=== PATIENT | female | born 1945 | race Caucasian/White ===

== ENCOUNTER 2016-06-28 10:49 | Emergency (ER) | payer MEDICARE, OTHER ==
[~2016-06-28] VITALS: Ht 162.6 cm; Wt 77.3 kg
[~2016-06-28 10:49] MED LIST: ASPIRIN E.C. 8181 MG PO; CLEOCIN HCL300 MG PO; CYMBALTA 60MG60 MG PO; GLUCOPHAGE500 MG/TAB PO; IMDUR 30MG30 MG/TAB PO; KLONOPIN2 MG PO; KLOR-CON 1010 MEQ PO; LEVEMIR SQ; LIPITOR20 MG PO; LOPRESSOR 225 MG/TAB PO; NITROSTAT0.4 MG/TAB SL; NORCO 325 MG-51 TAB PO; PROTONIX 40MG T40 MG PO; REQUIP 0.5MG0.5 MG PO; SINGULAIR 110 MG/TAB PO; SYNTHROID0.125 MG/T PO; TOPROL XL 25MG25 MG PO; TRULICITY1.5 MG/0.5 SQ; ZANTAC 150MG T150 MG PO
[2016-06-28 10:55] VITALS: TEMP 97.3
[2016-06-28 12:13] LABS: BASO % 0.6 % (0.0-2.0); EOS # 0.1 (0.0-0.7); EOS % 2.2 % (0-4.0); GRAN # 2.8 (1.4-6.5); GRAN % 56.7 % (42.2-75.2); LYMPH # 1.5 (1.2-3.4); LYMPH % 29.7 % (20.0-51.0); MEAN CELL VOLUME 89 fl (80.0-100.0); MEAN CORPUSCULAR HGB CONC 34 g/dl (33.0-37.0); MEAN PLATELET VOLUME 10.8 fl (7.4-10.4); MONO # 0.5 (0.1-0.6); MONO % 10.4 % (1.7-9.3); PLATELET COUNT 164 K/mm3 (130-400); RED BLOOD COUNT 3.88 M/mm3 (4.10-5.30); REDCELL DISTRIBUTION WIDTH-CV 13.3 % (11.5-14.5)
[2016-06-28 12:22] LABS: INFLUENZA B NEGATIVE
[2016-06-28 12:25] LABS: ADJUSTED CALCIUM 9.9 mg/dL (8.4-10.2); ALANINE AMINOTRANSFERASE 32 U/L (9-52); ALBUMIN 4.1 gm/dL (3.5-5.0); ALKALINE PHOSPHATASE 63 U/L (50-136); ANION GAP 10 mmol/L (7-16); BILIRUBIN,TOTAL 0.8 mg/dL (0.0-1.0); BLOOD UREA NITROGEN 23 mg/dL (7-17); CARBON DIOXIDE 22 mmol/L (22-30); CHLORIDE 105 mmol/L (98-107); CREATININE, serum 1.08 mg/dL (0.52-1.25); GLUCOSE 135 mg/dL (74-106); SODIUM 138 mmol/L (137-145); TOTAL PROTEIN 6.8 gm/dL (6.4-8.2)
[2016-06-28 12:28] LABS: HEMATOCRIT 34.6 % (37.0-47.0); HEMOGLOBIN 11.8 g/dl (12.5-16.0); MEAN CORPUSCULAR HEMOGLOBIN 30 pg (27.0-31.0)
[2016-06-28 12:36] LABS: B-TYPE NATRIURETIC PEPTIDE 318 pg/mL (0-125)
[2016-06-28 12:43] LABS: TROPONIN-I < 0.012 ng/mL (0.000-0.034)
[2016-06-28] MEDS ORDERED: ZITHROMAX Z PA250 MG PO (13:17)
[2016-06-28] MEDS ORDERED: PREDNISONE20 MG PO (13:17)
[2016-06-28] MEDS ORDERED: VENTOLIN0.09 MG IH (13:17)
[2016-06-28] MEDS ORDERED: TESSALON P100 MG/CAP PO (13:17)
[2016-06-28 13:41] VITALS: BP 115/69; PULSE 80
== END 2016-06-28 13:42 | disposition home or self-care (01) ==
LOC: COL.ER 10:49
PROVIDERS: Nurse Practitioner
DX: J20.9 Acute bronchitis, unspecified (principal); E11.9 Type 2 diabetes mellitus without complications; Z79.4 Long term (current) use of insulin; I10 Essential (primary) hypertension; I25.10 Atherosclerotic heart disease of native coronary artery without angina pectoris; Z95.1 Presence of aortocoronary bypass graft; Z95.5 Presence of coronary angioplasty implant and graft

== ENCOUNTER 2016-07-18 12:06 | Day surgery (SDC) | payer OTHER ==
[~2016-07-18] VITALS: Ht 162.6 cm; Wt 80.2 kg
[2016-07-18] VITALS (397 sets, daily range): BP systolic 102–143; BP diastolic 46–100; PULSE 70–82; TEMP 97–98; O2SAT 88–100
[~2016-07-18 12:06] MED LIST changes: +PREDNISONE20 MG PO; +TESSALON P100 MG/CAP PO; +VENTOLIN0.09 MG IH; +ZITHROMAX Z PA250 MG PO
[2016-07-18 12:44] LABS: HEMATOCRIT 37.4 % (37.0-47.0); HEMOGLOBIN 12.6 g/dl (12.5-16.0); MEAN CELL VOLUME 90 fl (80.0-100.0); MEAN CORPUSCULAR HEMOGLOBIN 30 pg (27.0-31.0); MEAN CORPUSCULAR HGB CONC 34 g/dl (33.0-37.0); MEAN PLATELET VOLUME 10.3 fl (7.4-10.4); PLATELET COUNT 166 K/mm3 (130-400); RED BLOOD COUNT 4.18 M/mm3 (4.10-5.30); REDCELL DISTRIBUTION WIDTH-CV 13.4 % (11.5-14.5); WHITE BLOOD COUNT 6.7 K/mm3 (4.8-10.8)
[2016-07-18 12:52] LABS: PROTHROMBIN TIME 10.9 SECONDS (9.7-12.8)
[2016-07-18] MEDS ORDERED: IMDUR 60MG60 MG/TAB PO (13:01)
[2016-07-18 13:06] LABS: CALCIUM 9.7 mg/dL (8.4-10.2); CREATININE, serum 1.01 mg/dL (0.52-1.25); POTASSIUM 4.5 mmol/L (3.4-5.0)
[2016-07-19] VITALS (440 sets, daily range): BP systolic 100–128; BP diastolic 47–72; PULSE 83–84; TEMP 97–98; O2SAT 91–100
[2016-07-19 05:56] LABS: BASO % 0.4 % (0.0-2.0); EOS # 0.1 (0.0-0.7); EOS % 2.4 % (0-4.0); GRAN # 2.7 (1.4-6.5); GRAN % 49.9 % (42.2-75.2); LYMPH # 2.2 (1.2-3.4); LYMPH % 39.6 % (20.0-51.0); MEAN CELL VOLUME 90 fl (80.0-100.0); MEAN CORPUSCULAR HGB CONC 34 g/dl (33.0-37.0); MEAN PLATELET VOLUME 10.4 fl (7.4-10.4); MONO # 0.4 (0.1-0.6); MONO % 7.3 % (1.7-9.3); PLATELET COUNT 140 K/mm3 (130-400); REDCELL DISTRIBUTION WIDTH-CV 13.2 % (11.5-14.5); WHITE BLOOD COUNT 5.5 K/mm3 (4.8-10.8)
[2016-07-19 06:01] LABS: HEMATOCRIT 33.4 % (37.0-47.0); HEMOGLOBIN 11.4 g/dl (12.5-16.0); MEAN CORPUSCULAR HEMOGLOBIN 31 pg (27.0-31.0)
[2016-07-19 06:42] LABS: CALCIUM 9.2 mg/dL (8.4-10.2); CREATININE, serum 1.01 mg/dL (0.52-1.25); POTASSIUM 4.2 mmol/L (3.4-5.0)
== END 2016-07-19 12:15 | disposition home or self-care (01) ==
LOC: EUO 12:06 → COL.RAD 12:30 → ICU 15:34 → EUO 07-19 12:15
PROVIDERS: Internal Medicine Interventional Cardiology
DX: I25.10 Atherosclerotic heart disease of native coronary artery without angina pectoris (principal); R07.9 Chest pain, unspecified; E11.9 Type 2 diabetes mellitus without complications; Z79.84 Long term (current) use of oral hypoglycemic drugs; Z79.4 Long term (current) use of insulin; E03.9 Hypothyroidism, unspecified; I10 Essential (primary) hypertension; E78.00 Pure hypercholesterolemia, unspecified
CPT/HCPCS: OP; C1725; C1760; C1769; C1874; C1887; C9600; C9601; J0583; J1815; J2250; J3010; Q9967

== ENCOUNTER 2016-08-09 08:58 | Emergency (ER) | payer MEDICARE, OTHER ==
[~2016-08-09] VITALS: Ht 162.6 cm; Wt 81.4 kg
[~2016-08-09 08:58] MED LIST changes: +IMDUR 60MG60 MG/TAB PO
[2016-08-09 09:12] VITALS: TEMP 98.2
[2016-08-09 09:18] LABS: BASO % 0.4 % (0.0-2.0); EOS # 0.2 (0.0-0.7); EOS % 2.3 % (0-4.0); GRAN # 4.6 (1.4-6.5); GRAN % 63.2 % (42.2-75.2); HEMOGLOBIN 12.3 g/dl (12.5-16.0); LYMPH % 26.9 % (20.0-51.0); MEAN CELL VOLUME 92 fl (80.0-100.0); MEAN CORPUSCULAR HEMOGLOBIN 31 pg (27.0-31.0); MEAN CORPUSCULAR HGB CONC 34 g/dl (33.0-37.0); MEAN PLATELET VOLUME 10.5 fl (7.4-10.4); MONO # 0.5 (0.1-0.6); MONO % 6.9 % (1.7-9.3); PLATELET COUNT 164 K/mm3 (130-400); RED BLOOD COUNT 3.96 M/mm3 (4.10-5.30); REDCELL DISTRIBUTION WIDTH-CV 13.8 % (11.5-14.5); WHITE BLOOD COUNT 7.4 K/mm3 (4.8-10.8)
[2016-08-09] MEDS ORDERED: PLAVIX 75MG TAB75 MG PO (09:23)
[2016-08-09 09:26] LABS: HEMATOCRIT 36.3 % (37.0-47.0)
[2016-08-09 09:28] LABS: INR 0.9 (0.8-3.0); PROTHROMBIN TIME 10.2 SECONDS (9.7-12.8)
[2016-08-09 09:31] LABS: PARTIAL THROMBOPLASTIN TIME 30.3 SECONDS (26.0-37.0)
[2016-08-09 09:33] LABS: ADJUSTED CALCIUM 9.3 mg/dL (8.4-10.2); ALANINE AMINOTRANSFERASE 33 U/L (9-52); ALBUMIN 4.3 gm/dL (3.5-5.0); ALKALINE PHOSPHATASE 66 U/L (50-136); ANION GAP 13 mmol/L (7-16); BILIRUBIN,TOTAL 0.7 mg/dL (0.0-1.0); BLOOD UREA NITROGEN 26 mg/dL (7-17); CALCIUM 9.5 mg/dL (8.4-10.2); CARBON DIOXIDE 21 mmol/L (22-30); CHLORIDE 103 mmol/L (98-107); CREATININE, serum 1.07 mg/dL (0.52-1.25); GLUCOSE 169 mg/dL (74-106); POTASSIUM 4.5 mmol/L (3.4-5.0); SODIUM 137 mmol/L (137-145); TOTAL PROTEIN 6.9 gm/dL (6.4-8.2)
[2016-08-09 09:44] LABS: TROPONIN-I < 0.012 ng/mL (0.000-0.034)
[2016-08-09 12:30] VITALS: BP 120/66; PULSE 79
== END 2016-08-09 12:40 | disposition short-term general hospital (02) ==
LOC: COL.ER 08:58
PROVIDERS: Family Medicine
DX: R07.9 Chest pain, unspecified (principal); I25.10 Atherosclerotic heart disease of native coronary artery without angina pectoris; I10 Essential (primary) hypertension; E11.9 Type 2 diabetes mellitus without complications; Z95.1 Presence of aortocoronary bypass graft; R06.02 Shortness of breath; Z79.02 Long term (current) use of antithrombotics/antiplatelets; Z79.4 Long term (current) use of insulin
CPT/HCPCS: J2060

== ENCOUNTER 2016-08-22 09:58 | Inpatient (IN) | payer MEDICARE, OTHER ==
[~2016-08-22] VITALS: Ht 162.6 cm; Wt 82.6 kg
[2016-08-22] VITALS (185 sets, daily range): BP systolic 127–144; BP diastolic 50–84; PULSE 78–81; TEMP 97.9–98.7; O2SAT 84–100
[~2016-08-22 09:58] MED LIST changes: +PLAVIX 75MG TAB75 MG PO
[2016-08-22 10:34] LABS: VENOUS BLOOD GAS BE -4.3 (-4-4); VENOUS BLOOD GAS SAO2 66.1 % (60-80)
[2016-08-22 10:35] LABS: VENOUS BLOOD GAS SITE VENIPUNCTURE
[2016-08-22 10:44] LABS: BASO % 0.4 % (0.0-2.0); EOS # 0.1 (0.0-0.7); EOS % 1.4 % (0-4.0); GRAN # 5.3 (1.4-6.5); GRAN % 72.5 % (42.2-75.2); HEMOGLOBIN 12.1 g/dl (12.5-16.0); LYMPH # 1.2 (1.2-3.4); LYMPH % 16.3 % (20.0-51.0); MEAN CELL VOLUME 92 fl (80.0-100.0); MEAN CORPUSCULAR HEMOGLOBIN 31 pg (27.0-31.0); MEAN CORPUSCULAR HGB CONC 34 g/dl (33.0-37.0); MEAN PLATELET VOLUME 10.5 fl (7.4-10.4); MONO # 0.7 (0.1-0.6); MONO % 8.9 % (1.7-9.3); PLATELET COUNT 206 K/mm3 (130-400); RED BLOOD COUNT 3.93 M/mm3 (4.10-5.30); REDCELL DISTRIBUTION WIDTH-CV 13.8 % (11.5-14.5); WHITE BLOOD COUNT 7.3 K/mm3 (4.8-10.8)
[2016-08-22 10:58] LABS: ADJUSTED CALCIUM 9.6 mg/dL (8.4-10.2); ALBUMIN 4.3 gm/dL (3.5-5.0); CALCIUM 9.8 mg/dL (8.4-10.2); CREATININE, serum 2.4 mg/dL (0.52-1.25); POTASSIUM 4.1 mmol/L (3.4-5.0); TOTAL PROTEIN 7.1 gm/dL (6.4-8.2)
[2016-08-22 12:50] LABS: PH 5 (5-8); SQUAMOUS EPITHELIAL 0-2 /hpf; URINE APPEARANCE Clear; URINE BACTERIA None Seen /hpf; URINE BILIRUBIN Negative (NEGATIVE); URINE BLOOD Negative (NEGATIVE); URINE COLOR Yellow; URINE GLUCOSE Negative (NEGATIVE); URINE KETONE Negative (NEGATIVE); URINE RBC 0-2 /hpf; URINE UROBILINOGEN Negative (NEGATIVE); URINE WBC 0-2 /hpf
[2016-08-22] MEDS ORDERED: RANEXA1000 MG PO (13:22)
[2016-08-22] MEDS ORDERED: BRILINTA90 MG PO (13:23)
[2016-08-22] MEDS ORDERED: LASIX 40MG TABL40 MG PO (15:00)
[2016-08-23 07:17] LABS: CALCIUM 9.2 mg/dL (8.4-10.2); CREATININE, serum 1.2 mg/dL (0.52-1.25); POTASSIUM 3.9 mmol/L (3.4-5.0)
[2016-08-23 07:22] VITALS: BP 124/74; PULSE 85; TEMP 98.8
[2016-08-23] MEDS ORDERED: MUCINEX DM 30 M1 TE1 PO (11:02)
[2016-08-23 11:45] VITALS: BP 129/68; PULSE 83; TEMP 98.4
[2016-08-23] MEDS ORDERED: LEVEMIR FLEX100 U/ML SQ (12:12)
== END 2016-08-23 14:24 | disposition home or self-care (01) | DRG 641 ==
LOC: COL.ER 09:58 → MEDICAL 12:56 → ICU 12:56 → MEDICAL 18:50
PROVIDERS: Family Medicine; Internal Medicine
DX: E86.1 Hypovolemia (principal); N17.9 Acute kidney failure, unspecified; E11.42 Type 2 diabetes mellitus with diabetic polyneuropathy; I10 Essential (primary) hypertension; J00 Acute nasopharyngitis [common cold]; E11.649 Type 2 diabetes mellitus with hypoglycemia without coma; I25.10 Atherosclerotic heart disease of native coronary artery without angina pectoris; Z95.1 Presence of aortocoronary bypass graft; Z95.5 Presence of coronary angioplasty implant and graft; Z79.4 Long term (current) use of insulin; J20.9 Acute bronchitis, unspecified
CPT/HCPCS: 99223-AI; 99239; J1644; J1815; J7030

== ENCOUNTER → 2016-10-10 | Outpatient (CLI) | payer MEDICARE, OTHER ==
[~2016-10-10] MED LIST changes: +BRILINTA90 MG PO; +CARDIZEM CD 12120 MG PO; +LASIX 40MG TABL40 MG PO; +LEVEMIR FLEX100 U/ML SQ; +MUCINEX DM 30 M1 TE1 PO; +RANEXA1000 MG PO
== END ==
LOC: MC.RAD 10:20
DX: Z12.31 Encounter for screening mammogram for malignant neoplasm of breast (principal)

== ENCOUNTER 2016-10-11 17:52 | Outpatient (RCR) | payer MEDICARE, OTHER ==
[~2016-10-11 17:52] MED LIST changes: -CARDIZEM CD 12120 MG PO
== END 2016-11-26 | disposition home or self-care (01) ==
LOC: COL.CR
DX: Z48.812 Encounter for surgical aftercare following surgery on the circulatory system (principal); Z95.5 Presence of coronary angioplasty implant and graft

== ENCOUNTER 2017-02-01 17:25 | Observation (INO) | payer MEDICARE, OTHER ==
[~2017-02-01] VITALS: Ht 162.6 cm; Wt 79.2 kg
[2017-02-01] MEDS ORDERED: CARDIZEM CD 12120 MG PO (18:06)
[2017-02-01 18:23] LABS: BASO % 0.4 % (0.0-2.0); EOS # 0.1 (0.0-0.7); EOS % 1.5 % (0-4.0); GRAN # 3.6 (1.4-6.5); GRAN % 65.9 % (42.2-75.2); HEMATOCRIT 30.9 % (37.0-47.0); HEMOGLOBIN 10.3 g/dl (12.5-16.0); LYMPH # 1.3 (1.2-3.4); LYMPH % 23.1 % (20.0-51.0); MEAN CELL VOLUME 93 fl (80.0-100.0); MEAN CORPUSCULAR HEMOGLOBIN 31 pg (27.0-31.0); MEAN CORPUSCULAR HGB CONC 33 g/dl (33.0-37.0); MEAN PLATELET VOLUME 10.8 fl (7.4-10.4); MONO # 0.4 (0.1-0.6); PLATELET COUNT 162 K/mm3 (130-400); RED BLOOD COUNT 3.31 M/mm3 (4.10-5.30); REDCELL DISTRIBUTION WIDTH-CV 13.3 % (11.5-14.5); WHITE BLOOD COUNT 5.5 K/mm3 (4.8-10.8)
[2017-02-01 18:25] LABS: PROTHROMBIN TIME 10.6 SECONDS (9.7-12.8)
[2017-02-01 18:27] LABS: PARTIAL THROMBOPLASTIN TIME 26.8 SECONDS (26.0-37.0)
[2017-02-01 18:30] LABS: ADJUSTED CALCIUM 9.3 mg/dL (8.4-10.2); ALANINE AMINOTRANSFERASE 32 U/L (9-52); ALBUMIN 3.8 gm/dL (3.5-5.0); ALKALINE PHOSPHATASE 49 U/L (50-136); ANION GAP 10 mmol/L (7-16); BILIRUBIN,TOTAL 0.6 mg/dL (0.0-1.0); BLOOD UREA NITROGEN 20 mg/dL (7-17); CALCIUM 9.1 mg/dL (8.4-10.2); CARBON DIOXIDE 22 mmol/L (22-30); CHLORIDE 103 mmol/L (98-107); CREATININE, serum 1.01 mg/dL (0.52-1.25); GLUCOSE 146 mg/dL (74-106); POTASSIUM 4.8 mmol/L (3.4-5.0); SODIUM 135 mmol/L (137-145); TOTAL PROTEIN 6.1 gm/dL (6.4-8.2)
[2017-02-01 18:42] LABS: TROPONIN-I < 0.012 ng/mL (0.000-0.034)
[2017-02-01 19:34] VITALS: BP 113/52; PULSE 68
[2017-02-01 23:32] VITALS: BP 121/50; PULSE 75; TEMP 97.8
[2017-02-01 23:38] VITALS: BP 121/50; PULSE 75; TEMP 97.8
[2017-02-02] VITALS (10 sets, daily range): BP systolic 94–144; BP diastolic 38–72; PULSE 77–92; TEMP 97.8–99
[2017-02-03 00:06] VITALS: BP 130/65; PULSE 78; TEMP 98.3
[2017-02-03 03:55] VITALS: BP 123/55; PULSE 80; TEMP 98.2
[2017-02-03 08:44] VITALS: BP 150/51; PULSE 84; TEMP 97.8
[2017-02-03 11:35] VITALS: BP 155/58; PULSE 80; TEMP 99.1
[2017-02-03 16:26] VITALS: BP 147/64; PULSE 80; TEMP 98.8
[2017-02-03] MEDS ORDERED: NORCO 325 MG-51 TAB PO (16:51)
== END 2017-02-03 18:49 | disposition home or self-care (01) ==
LOC: COL.ER 17:25 → MEDICAL 20:12
PROVIDERS: Emergency Medicine
DX: S32.592A Other specified fracture of left pubis, initial encounter for closed fracture (principal); I95.1 Orthostatic hypotension; I25.10 Atherosclerotic heart disease of native coronary artery without angina pectoris; I10 Essential (primary) hypertension; E11.9 Type 2 diabetes mellitus without complications; I82.409 Acute embolism and thrombosis of unspecified deep veins of unspecified lower extremity; E03.9 Hypothyroidism, unspecified; E78.00 Pure hypercholesterolemia, unspecified; F41.9 Anxiety disorder, unspecified; Z79.4 Long term (current) use of insulin; Z95.1 Presence of aortocoronary bypass graft; Z95.5 Presence of coronary angioplasty implant and graft; Z90.710 Acquired absence of both cervix and uterus
CPT/HCPCS: 99239; G0378; G8978-GP; G8979-GP; G8987-GO; G8988-GO; J1644; J1815; J2270; J7030

== ENCOUNTER 2017-03-20 20:03 | Inpatient (IN) | payer MEDICARE, OTHER ==
[~2017-03-20] VITALS: Ht 152.4 cm; Wt 79.1 kg
[~2017-03-20 20:03] MED LIST changes: +CARDIZEM CD 12120 MG PO
[2017-03-20 21:16] LABS: BASO % 0.5 % (0.0-2.0); EOS # 0.1 (0.0-0.7); EOS % 1.4 % (0-4.0); GRAN # 3.8 (1.4-6.5); GRAN % 65.7 % (42.2-75.2); LYMPH # 1.4 (1.2-3.4); LYMPH % 23.5 % (20.0-51.0); MEAN CELL VOLUME 92 fl (80.0-100.0); MEAN CORPUSCULAR HGB CONC 34 g/dl (33.0-37.0); MEAN PLATELET VOLUME 10.5 fl (7.4-10.4); MONO # 0.5 (0.1-0.6); MONO % 8.6 % (1.7-9.3); PLATELET COUNT 168 K/mm3 (130-400); RED BLOOD COUNT 3.69 M/mm3 (4.10-5.30); WHITE BLOOD COUNT 5.8 K/mm3 (4.8-10.8)
[2017-03-20 21:18] LABS: HEMATOCRIT 34.1 % (37.0-47.0); HEMOGLOBIN 11.5 g/dl (12.5-16.0); MEAN CORPUSCULAR HEMOGLOBIN 31 pg (27.0-31.0)
[2017-03-20 21:28] LABS: ADJUSTED CALCIUM 9.3 mg/dL (8.4-10.2); ALANINE AMINOTRANSFERASE 19 U/L (9-52); ALBUMIN 4.5 gm/dL (3.5-5.0); ALKALINE PHOSPHATASE 108 U/L (50-136); ANION GAP 16 mmol/L (7-16); BILIRUBIN,TOTAL 0.7 mg/dL (0.0-1.0); BLOOD UREA NITROGEN 30 mg/dL (7-17); CALCIUM 9.7 mg/dL (8.4-10.2); CARBON DIOXIDE 21 mmol/L (22-30); CHLORIDE 100 mmol/L (98-107); CREATININE, serum 1.41 mg/dL (0.52-1.25); GLUCOSE 110 mg/dL (74-106); POTASSIUM 4.5 mmol/L (3.4-5.0); SODIUM 137 mmol/L (137-145); TOTAL PROTEIN 7.2 gm/dL (6.4-8.2)
[2017-03-20 21:29] LABS: C-REACTIVE PROTEIN < 0.5 mg/dL (0.0-0.9)
[2017-03-20 21:38] LABS: TROPONIN-I < 0.012 ng/mL (0.000-0.034)
[2017-03-20 21:48] VITALS: BP 133/71; PULSE 81
[2017-03-20] MEDS ORDERED: K-DUR20 MEQ PO (22:10)
[2017-03-20] MEDS ORDERED: LASIX 40MG TABL40 MG PO (22:11)
[2017-03-20] MEDS ORDERED: GLUCOPHAGE500 MG/TAB PO (22:11)
[2017-03-20] MEDS ORDERED: SINGULAIR 110 MG/TAB PO (22:12)
[2017-03-20] MEDS ORDERED: ZOFRAN 4MG T4 MG/TAB PO (22:13)
[2017-03-20 22:23] LABS: COLLECTION METHOD CLEAN CATCH
[2017-03-20 22:33] LABS: MUCOUS Present /lpf; PH 5 (5-8); URINE APPEARANCE Clear; URINE BACTERIA None Seen /hpf; URINE BILIRUBIN Negative (NEGATIVE); URINE BLOOD Negative (NEGATIVE); URINE COLOR Yellow; URINE GLUCOSE Negative (NEGATIVE); URINE KETONE Negative (NEGATIVE); URINE LEUKOCYTE ESTERASE Negative (NEGATIVE); URINE PROTEIN(semi-quant) Negative (NEGATIVE); URINE RBC 0-2 /hpf; URINE UROBILINOGEN Negative (NEGATIVE); URINE WBC 0-2 /hpf
[2017-03-21] VITALS (14 sets, daily range): BP systolic 92–154; BP diastolic 26–71; PULSE 69–99; TEMP 97.4–98.4
[2017-03-21] MEDS ORDERED: REQUIP 0.5MG0.5 MG PO (00:13)
[2017-03-21 07:10] LABS: BASO % 0.3 % (0.0-2.0); EOS # 0.1 (0.0-0.7); EOS % 1.2 % (0-4.0); GRAN # 4.1 (1.4-6.5); LYMPH # 1.2 (1.2-3.4); MEAN CELL VOLUME 93 fl (80.0-100.0); MEAN CORPUSCULAR HGB CONC 34 g/dl (33.0-37.0); MEAN PLATELET VOLUME 10.7 fl (7.4-10.4); MONO # 0.4 (0.1-0.6); MONO % 7.2 % (1.7-9.3); PLATELET COUNT 149 K/mm3 (130-400); RED BLOOD COUNT 3.28 M/mm3 (4.10-5.30); WHITE BLOOD COUNT 5.8 K/mm3 (4.8-10.8)
[2017-03-21 07:12] LABS: HEMATOCRIT 30.4 % (37.0-47.0); HEMOGLOBIN 10.2 g/dl (12.5-16.0); MEAN CORPUSCULAR HEMOGLOBIN 31 pg (27.0-31.0)
[2017-03-21 07:25] LABS: ADJUSTED CALCIUM 9.3 mg/dL (8.4-10.2); ALBUMIN 3.8 gm/dL (3.5-5.0); BILIRUBIN,TOTAL 0.6 mg/dL (0.0-1.0); CALCIUM 9.1 mg/dL (8.4-10.2); CHOLESTEROL RISK RATIO 1.8; CREATININE, serum 1.23 mg/dL (0.52-1.25); POTASSIUM 4.3 mmol/L (3.4-5.0); TOTAL PROTEIN 6.2 gm/dL (6.4-8.2)
[2017-03-22 04:31] VITALS: BP 134/52; PULSE 77; TEMP 97.6
[2017-03-22 06:59] LABS: CALCIUM 9.2 mg/dL (8.4-10.2); CREATININE, serum 1.15 mg/dL (0.52-1.25)
[2017-03-22 08:48] VITALS: BP 146/56; PULSE 74; TEMP 97.4
[2017-03-22] MEDS ORDERED: KEPPRA 500MG500 MG PO (11:02)
[2017-03-22 12:00] VITALS: BP 121/64; PULSE 76; TEMP 97.9
== END 2017-03-22 16:39 | disposition home or self-care (01) | DRG 101 ==
LOC: COL.ER 20:03 → MEDICAL 23:20
PROVIDERS: Emergency Medicine; Nurse Practitioner Family; Physician Assistant
DX: R56.9 Unspecified convulsions (principal); N17.9 Acute kidney failure, unspecified; E11.9 Type 2 diabetes mellitus without complications; E03.9 Hypothyroidism, unspecified; K21.9 Gastro-esophageal reflux disease without esophagitis; E78.5 Hyperlipidemia, unspecified; I11.0 Hypertensive heart disease with heart failure; I50.9 Heart failure, unspecified; Z66 Do not resuscitate; F32.9 Major depressive disorder, single episode, unspecified; F41.9 Anxiety disorder, unspecified; R47.1 Dysarthria and anarthria; R53.1 Weakness; Z95.1 Presence of aortocoronary bypass graft; Z96.643 Presence of artificial hip joint, bilateral; Z95.5 Presence of coronary angioplasty implant and graft; Z79.84 Long term (current) use of oral hypoglycemic drugs
CPT/HCPCS: 99223-AI; 99239; A9585; G8978-GP; G8979-GP; G8987-GO; G8988-GO; G8999-GN; G9186-GN; J1644; J1815; J7030

== ENCOUNTER → 2017-03-27 | Outpatient (CLI) | payer MEDICARE, OTHER ==
[~2017-03-27] MED LIST changes: +K-DUR20 MEQ PO; +KEPPRA 500MG500 MG PO; +ZOFRAN 4MG T4 MG/TAB PO
== END ==
LOC: COL.CARD 09:12
DX: R41.82 Altered mental status, unspecified (principal); R25.1 Tremor, unspecified

== ENCOUNTER 2017-06-18 13:35 | Emergency (ER) | payer MEDICARE, OTHER ==
[~2017-06-18] VITALS: Ht 162.6 cm; Wt 81.8 kg
[2017-06-18 13:41] VITALS: TEMP 98
[2017-06-18 13:59] LABS: BASO % 0.4 % (0.0-2.0); EOS # 0.1 (0.0-0.7); EOS % 1.9 % (0-4.0); GRAN % 65.4 % (42.2-75.2); HEMOGLOBIN 11.7 g/dl (12.5-16.0); LYMPH # 1.2 (1.2-3.4); LYMPH % 24.8 % (20.0-51.0); MEAN CELL VOLUME 96 fl (80.0-100.0); MEAN CORPUSCULAR HEMOGLOBIN 31 pg (27.0-31.0); MEAN CORPUSCULAR HGB CONC 33 g/dl (33.0-37.0); MEAN PLATELET VOLUME 10.3 fl (7.4-10.4); MONO # 0.3 (0.1-0.6); MONO % 7.1 % (1.7-9.3); PLATELET COUNT 163 K/mm3 (130-400); RED BLOOD COUNT 3.74 M/mm3 (4.10-5.30); REDCELL DISTRIBUTION WIDTH-CV 14.1 % (11.5-14.5)
[2017-06-18] MEDS ORDERED: ASPIRIN 81M81 MG/TA2 PO (14:00)
[2017-06-18] MEDS ORDERED: CYMBALTA 60MG60 MG PO (14:01)
[2017-06-18] MEDS ORDERED: IRON TABLETS325 MG PO (14:01)
[2017-06-18] MEDS ORDERED: LIPITOR20 MG PO (14:01)
[2017-06-18] MEDS ORDERED: LASIX 40MG TABL40 MG PO (14:02)
[2017-06-18] MEDS ORDERED: LEVEMIR100 U/ML SQ (14:03)
[2017-06-18] MEDS ORDERED: NORCO 325 MG-51 TAB PO (14:03)
[2017-06-18] MEDS ORDERED: KEPPRA750 MG PO (14:04)
[2017-06-18] MEDS ORDERED: ISOSORBIDE MON120 MG PO (14:04)
[2017-06-18] MEDS ORDERED: MAG-OX 400400 MG/TAB PO (14:05)
[2017-06-18] MEDS ORDERED: SYNTHROID0.125 MG/T PO (14:05)
[2017-06-18] MEDS ORDERED: GLUCOPHAGE500 MG/TAB PO (14:05)
[2017-06-18 14:06] LABS: INR 0.9 (0.8-3.0); PROTHROMBIN TIME 10.7 SECONDS (9.7-12.8)
[2017-06-18] MEDS ORDERED: NITROSTAT0.4 MG/TAB SL (14:06)
[2017-06-18] MEDS ORDERED: SINGULAIR 110 MG/TAB PO (14:06)
[2017-06-18] MEDS ORDERED: PROTONIX 40MG T40 MG PO (14:07)
[2017-06-18] MEDS ORDERED: ZOFRAN 4MG T4 MG/TAB PO (14:07)
[2017-06-18] MEDS ORDERED: K-DUR20 MEQ PO (14:08)
[2017-06-18] MEDS ORDERED: REQUIP 0.5MG0.5 MG PO ×2 (14:08→14:09)
[2017-06-18] MEDS ORDERED: RANEXA1000 MG PO (14:08)
[2017-06-18 14:09] LABS: ALANINE AMINOTRANSFERASE 25 U/L (9-52); ALBUMIN 4.6 gm/dL (3.5-5.0); ALKALINE PHOSPHATASE 73 U/L (50-136); ANION GAP 11 mmol/L (7-16); AST,SGOT 14 U/L (15-37); BILIRUBIN,TOTAL 0.5 mg/dL (0.0-1.0); BLOOD UREA NITROGEN 23 mg/dL (7-17); CALCIUM 9.5 mg/dL (8.4-10.2); CARBON DIOXIDE 23 mmol/L (22-30); CHLORIDE 102 mmol/L (98-107); CREATININE, serum 1.23 mg/dL (0.52-1.25); GLUCOSE 388 mg/dL (74-106); POTASSIUM 4.9 mmol/L (3.4-5.0); SODIUM 136 mmol/L (137-145); TOTAL PROTEIN 6.9 gm/dL (6.4-8.2)
[2017-06-18] MEDS ORDERED: BRILINTA90 MG PO (14:09)
[2017-06-18] MEDS ORDERED: TRULICITY1.5 MG/0.5 SQ (14:10)
[2017-06-18 14:21] LABS: TROPONIN-I < 0.012 ng/mL (0.000-0.034)
[2017-06-18 16:59] VITALS: BP 117/69; PULSE 93
== END 2017-06-18 17:01 | disposition home or self-care (01) ==
LOC: COL.ER 13:35
PROVIDERS: Family Medicine
DX: R07.9 Chest pain, unspecified (principal); I10 Essential (primary) hypertension; E11.9 Type 2 diabetes mellitus without complications; E78.5 Hyperlipidemia, unspecified; I25.10 Atherosclerotic heart disease of native coronary artery without angina pectoris; Z95.5 Presence of coronary angioplasty implant and graft; Z98.890 Other specified postprocedural states; Z79.82 Long term (current) use of aspirin; Z79.4 Long term (current) use of insulin
CPT/HCPCS: J1885

== ENCOUNTER → 2017-07-20 | Outpatient (CLI) | payer MEDICARE, OTHER ==
[~2017-07-20] MED LIST changes: +ASPIRIN 81M81 MG/TA2 PO; +IRON TABLETS325 MG PO; +ISOSORBIDE MON120 MG PO; +KEPPRA750 MG PO; +LEVEMIR100 U/ML SQ; +MAG-OX 400400 MG/TAB PO
== END ==
LOC: COL.RAD 10:23
DX: N26.1 Atrophy of kidney (terminal) (principal); N18.3 Chronic kidney disease, stage 3 (moderate)

== ENCOUNTER 2017-10-22 12:08 | Emergency (ER) | payer MEDICARE, OTHER ==
[~2017-10-22] VITALS: Ht 165.1 cm; Wt 78.6 kg
[2017-10-22 12:11] VITALS: TEMP 97.5
[2017-10-22] MEDS ORDERED: BRILINTA90 MG PO (12:25)
[2017-10-22] MEDS ORDERED: HYGROTON 2525 MG/TAB PO (12:26)
[2017-10-22] MEDS ORDERED: PLETAL50 MG PO (12:26)
[2017-10-22] MEDS ORDERED: CYMBALTA 60MG60 MG PO (12:27)
[2017-10-22] MEDS ORDERED: KLONOPIN2 MG PO (12:27)
[2017-10-22] MEDS ORDERED: NEURONTIN300 MG/CAP PO (12:28)
[2017-10-22] MEDS ORDERED: KEPPRA 500MG500 MG PO (12:30)
[2017-10-22] MEDS ORDERED: MELATONIN5 M1 PO (12:32)
[2017-10-22] MEDS ORDERED: TOPROL XL 25MG25 MG PO (12:33)
[2017-10-22] MEDS ORDERED: ZANTAC 150MG T150 MG PO (12:34)
[2017-10-22] MEDS ORDERED: REQUIP4 MG PO (12:35)
[2017-10-22] MEDS ORDERED: ZANAFLEX 4MG TAB4 MG PO (12:37)
[2017-10-22] MEDS ORDERED: VITAMIN D 50,1.25 MG PO (12:38)
[2017-10-22] MEDS ORDERED: VITAMINC1000TA PO (12:38)
[2017-10-22 12:56] LABS: BASO % 0.3 % (0.0-2.0); EOS # 0.1 (0.0-0.7); EOS % 1.1 % (0-4.0); GRAN # 4.1 (1.4-6.5); GRAN % 64.4 % (42.2-75.2); HEMOGLOBIN 11.5 g/dl (12.5-16.0); LYMPH # 1.6 (1.2-3.4); LYMPH % 25.2 % (20.0-51.0); MEAN CELL VOLUME 93 fl (80.0-100.0); MEAN CORPUSCULAR HEMOGLOBIN 32 pg (27.0-31.0); MEAN CORPUSCULAR HGB CONC 34 g/dl (33.0-37.0); MEAN PLATELET VOLUME 9.7 fl (7.4-10.4); MONO # 0.5 (0.1-0.6); MONO % 8.2 % (1.7-9.3); PLATELET COUNT 227 K/mm3 (130-400); RED BLOOD COUNT 3.63 M/mm3 (4.10-5.30); REDCELL DISTRIBUTION WIDTH-CV 13.5 % (11.5-14.5)
[2017-10-22 12:57] LABS: HEMATOCRIT 33.7 % (37.0-47.0)
[2017-10-22 13:08] LABS: ALANINE AMINOTRANSFERASE 21 U/L (9-52); ALBUMIN 4.2 gm/dL (3.5-5.0); ALKALINE PHOSPHATASE 65 U/L (50-136); ANION GAP 15 mmol/L (7-16); AST,SGOT 19 U/L (15-37); BILIRUBIN,TOTAL 0.7 mg/dL (0.0-1.0); BLOOD UREA NITROGEN 49 mg/dL (7-17); C-REACTIVE PROTEIN 3.6 mg/dL (0.0-0.9); CALCIUM 9.6 mg/dL (8.4-10.2); CARBON DIOXIDE 21 mmol/L (22-30); CHLORIDE 101 mmol/L (98-107); CREATININE, serum 2.22 mg/dL (0.52-1.25); GLUCOSE 105 mg/dL (74-106); LIPASE 116 U/L (23-300); POTASSIUM 3.5 mmol/L (3.4-5.0); SODIUM 137 mmol/L (137-145); TOTAL PROTEIN 7.9 gm/dL (6.4-8.2)
[2017-10-22 13:18] LABS: TROPONIN-I < 0.012 ng/mL (0.000-0.034)
[2017-10-22 14:44] VITALS: BP 122/59; PULSE 71
== END 2017-10-22 15:30 | disposition short-term general hospital (02) ==
LOC: COL.ER 12:08
PROVIDERS: Emergency Medicine
DX: S06.6X9A Traumatic subarachnoid hemorrhage with loss of consciousness of unspecified duration, initial encounter (principal); N17.9 Acute kidney failure, unspecified; I10 Essential (primary) hypertension; I50.9 Heart failure, unspecified; Z95.1 Presence of aortocoronary bypass graft; Z91.81 History of falling; Z79.82 Long term (current) use of aspirin; Z79.4 Long term (current) use of insulin; W19.XXXA Unspecified fall, initial encounter; W22.8XXA Striking against or struck by other objects, initial encounter
CPT/HCPCS: J7030

== ENCOUNTER 2017-10-24 11:17 | Inpatient (IN) | payer MEDICARE, OTHER ==
[~2017-10-24] VITALS: Ht 162.6 cm; Wt 76.9 kg
[~2017-10-24 11:17] MED LIST changes: +HYGROTON 2525 MG/TAB PO; +MELATONIN5 M1 PO; +NEURONTIN300 MG/CAP PO; +PLETAL50 MG PO; +REQUIP4 MG PO; +VITAMIN D 50,1.25 MG PO; +VITAMINC1000TA PO; +ZANAFLEX 4MG TAB4 MG PO
[2017-10-24 11:56] LABS: HEMOGLOBIN 12.1 g/dl (12.5-16.0); MEAN CELL VOLUME 92 fl (80.0-100.0); MEAN CORPUSCULAR HEMOGLOBIN 32 pg (27.0-31.0); MEAN CORPUSCULAR HGB CONC 35 g/dl (33.0-37.0); MEAN PLATELET VOLUME 9.7 fl (7.4-10.4); PLATELET COUNT 316 K/mm3 (130-400); RED BLOOD COUNT 3.78 M/mm3 (4.10-5.30); REDCELL DISTRIBUTION WIDTH-CV 13.6 % (11.5-14.5)
[2017-10-24 12:03] LABS: HEMATOCRIT 34.9 % (37.0-47.0)
[2017-10-24 12:08] LABS: COLLECTION METHOD CLEAN CATCH
[2017-10-24 12:13] LABS: ALBUMIN 4.5 gm/dL (3.5-5.0); BILIRUBIN,TOTAL 0.8 mg/dL (0.0-1.0); CALCIUM 10.1 mg/dL (8.4-10.2); CREATININE, serum 1.31 mg/dL (0.52-1.25); MAGNESIUM 1.9 mg/dL (1.6-2.3); POTASSIUM 3.8 mmol/L (3.4-5.0); TOTAL PROTEIN 8.6 gm/dL (6.4-8.2)
[2017-10-24 12:21] LABS: MUCOUS Present /lpf; PH 5 (5-8); SQUAMOUS EPITHELIAL 0-2 /hpf; URINE APPEARANCE Clear; URINE BACTERIA None Seen /hpf; URINE BILIRUBIN Negative (NEGATIVE); URINE BLOOD Negative (NEGATIVE); URINE COLOR Yellow; URINE GLUCOSE Negative (NEGATIVE); URINE KETONE Trace (NEGATIVE); URINE LEUKOCYTE ESTERASE Negative (NEGATIVE); URINE NITRATE Negative (NEGATIVE); URINE PROTEIN(semi-quant) Negative (NEGATIVE); URINE RBC 0-2 /hpf; URINE UROBILINOGEN Negative (NEGATIVE)
[2017-10-24 12:42] LABS: TSH w REFLEX 2.46 uIU/mL (0.465-4.680)
[2017-10-24 12:55] LABS: BAND 3 % (0-10); LYMPHOCYTE 44 % (20.0-51.0); NEUTROPHILS 49 % (42.0-75.2)
[2017-10-24 12:56] LABS: PLATELET ESTIMATE INCREASED (NORMAL)
[2017-10-24] MEDS ORDERED: KEPPRA 500MG500 MG PO (13:46)
[2017-10-24 15:17] VITALS: BP 124/90; PULSE 92; TEMP 98.2
[2017-10-24 16:29] VITALS: BP 113/64; PULSE 89; TEMP 98.1
[2017-10-24 20:33] VITALS: BP 98/44; PULSE 82
[2017-10-24 20:38] VITALS: BP 119/55; PULSE 93
[2017-10-24 23:29] VITALS: BP 131/68; PULSE 104; TEMP 100.5
[2017-10-25 04:04] VITALS: BP 137/71; PULSE 91; TEMP 98.3
[2017-10-25 04:25] VITALS: BP 133/67; PULSE 87; TEMP 98.4
[2017-10-25 07:23] LABS: BASO % 0.5 % (0.0-2.0); EOS # 0.1 (0.0-0.7); EOS % 2.1 % (0-4.0); GRAN # 2.9 (1.4-6.5); GRAN % 44.5 % (42.2-75.2); HEMOGLOBIN 10.8 g/dl (12.5-16.0); LYMPH # 2.7 (1.2-3.4); LYMPH % 40.9 % (20.0-51.0); MEAN CELL VOLUME 95 fl (80.0-100.0); MEAN CORPUSCULAR HEMOGLOBIN 32 pg (27.0-31.0); MEAN CORPUSCULAR HGB CONC 34 g/dl (33.0-37.0); MEAN PLATELET VOLUME 9.7 fl (7.4-10.4); MONO # 0.6 (0.1-0.6); MONO % 9.4 % (1.7-9.3); PLATELET COUNT 256 K/mm3 (130-400); REDCELL DISTRIBUTION WIDTH-CV 13.6 % (11.5-14.5)
[2017-10-25 07:24] LABS: HEMATOCRIT 32.2 % (37.0-47.0)
[2017-10-25 07:30] LABS: CALCIUM 9.4 mg/dL (8.4-10.2); CREATININE, serum 1.42 mg/dL (0.52-1.25); POTASSIUM 3.2 mmol/L (3.4-5.0)
[2017-10-25 08:34] VITALS: BP 103/49; PULSE 79; TEMP 98.6
[2017-10-25 12:11] VITALS: BP 125/53; PULSE 74; TEMP 98.5
[2017-10-25 16:47] VITALS: BP 119/73; PULSE 82; TEMP 98.8
[2017-10-25 19:48] VITALS: BP 130/67; PULSE 88; TEMP 98.7
[2017-10-26] VITALS (7 sets, daily range): BP systolic 101–144; BP diastolic 59–80; PULSE 67–140; TEMP 97.4–98.8
[2017-10-26 07:33] LABS: BASO % 0.3 % (0.0-2.0); EOS % 0.2 % (0-4.0); GRAN # 7.7 (1.4-6.5); GRAN % 71.5 % (42.2-75.2); HEMOGLOBIN 11.7 g/dl (12.5-16.0); LYMPH # 2.1 (1.2-3.4); LYMPH % 19.8 % (20.0-51.0); MEAN CELL VOLUME 96 fl (80.0-100.0); MEAN CORPUSCULAR HEMOGLOBIN 32 pg (27.0-31.0); MEAN CORPUSCULAR HGB CONC 33 g/dl (33.0-37.0); MEAN PLATELET VOLUME 10.3 fl (7.4-10.4); MONO # 0.8 (0.1-0.6); MONO % 7.2 % (1.7-9.3); PLATELET COUNT 301 K/mm3 (130-400); RED BLOOD COUNT 3.67 M/mm3 (4.10-5.30); REDCELL DISTRIBUTION WIDTH-CV 13.7 % (11.5-14.5)
[2017-10-26 07:42] LABS: CALCIUM 8.9 mg/dL (8.4-10.2); CREATININE, serum 1.21 mg/dL (0.52-1.25); POTASSIUM 4.4 mmol/L (3.4-5.0)
[2017-10-26 07:46] LABS: HEMATOCRIT 35.3 % (37.0-47.0)
[2017-10-26] MEDS ORDERED: ASPIRIN 81M81 MG/TA2 PO (10:14)
[2017-10-27] VITALS (8 sets, daily range): BP systolic 93–121; BP diastolic 49–72; PULSE 62–110; TEMP 97.6–98.8
[2017-10-27] MEDS ORDERED: SEROQUEL 2525 MG/TAB PO ×2 (13:20→13:21)
[2017-10-28 04:18] VITALS: BP 96/61; PULSE 95; TEMP 98.6
[2017-10-28 07:49] VITALS: BP 101/63; PULSE 83; TEMP 98.1
[2017-10-28 11:43] VITALS: BP 91/54; PULSE 79; TEMP 98.5
== END 2017-10-28 14:30 | disposition home or self-care (01) | DRG 85 ==
LOC: COL.ER 11:17 → MEDICAL 13:19
PROVIDERS: Emergency Medicine; Physician Assistant
DX: S06.6X0A Traumatic subarachnoid hemorrhage without loss of consciousness, initial encounter (principal); G92 Toxic encephalopathy; N17.9 Acute kidney failure, unspecified; I50.32 Chronic diastolic (congestive) heart failure; F05 Delirium due to known physiological condition; W18.30XA Fall on same level, unspecified, initial encounter; R44.1 Visual hallucinations; I11.0 Hypertensive heart disease with heart failure; I25.10 Atherosclerotic heart disease of native coronary artery without angina pectoris; E11.9 Type 2 diabetes mellitus without complications; Z95.1 Presence of aortocoronary bypass graft; Z95.5 Presence of coronary angioplasty implant and graft; I73.9 Peripheral vascular disease, unspecified; Z95.820 Peripheral vascular angioplasty status with implants and grafts; F41.1 Generalized anxiety disorder; G40.909 Epilepsy, unspecified, not intractable, without status epilepticus; E87.6 Hypokalemia
CPT/HCPCS: 99222-AI; 99231-AI; 99232-AI; 99233-AI; 99239; J1815; J7030; Q9967

== ENCOUNTER → 2017-11-29 | Outpatient (CLI) | payer MEDICARE, OTHER ==
[~2017-11-29] MED LIST changes: +SEROQUEL 2525 MG/TAB PO
== END ==
LOC: BHSO 12:55
DX: F05 Delirium due to known physiological condition (principal)
CPT/HCPCS: G0463